=== PATIENT | female | born 1965 | race Two or more races ===

== ENCOUNTER 2022-01-29 15:55 | Inpatient (IN) | payer OTHER, SELFPAY ==
[2022-01-29 16:07] VITALS: BP 141/83; BP 142/72; PULSE 18; PULSE 76; RESP 18; TEMP 36.7; O2SAT 98; BMI 23.8
--- NOTE | 2022-01-29 16:28 | ED.GENADULT ---
HPI - General Adult General Chief complaint: Psychiatric Symptoms Stated complaint: [id number] Time Seen by Provider: 01/29/22 16:28 Source: patient and EMS Mode of arrival: EMS Limitations: no limitations History of Present Illness HPI narrative: Patient is a 56 year old assigned female at with a history of bipolar disorder presenting to the emergency department today with suicidal ideation and increased depression. Patient states that she can't sleep and feels blank . Patient denies any dizziness, lightheadedness, abdominal pain, nausea, vomiting, fever, chills, blurry vision, double vision, loss of vision, chest pain, difficulty breathing, shortness of breath, back pain, night sweats, pain with urination, increased urinary frequency, increased urinary urgency, blood in her urine or stool, syncope or a near syncopal episode, recent trauma or falls, bowel incontinence, bladder incontinence, bowel retention, bladder retention, or any other complaints at this time. Onset (ago): day(s) Severity: moderate Severity scale (1-10): 5 Relieving factors: none Exacerbating factors: none Associated symptoms: denies other symptoms Treatments prior to arrival: none Related Data Allergies Allergy/AdvReac Type Severity Reaction Status Date / Time No Known Allergies Allergy Verified 01/29/22 16:07 Review of Systems Constitutional: Constitutional: Reports no additional constitutional complaints, Denies chills, Denies fever(s) and Denies night sweats Eyes: Eyes: Reports no additional eye complaints, Denies blurry vision, Denies change in vision, Denies diplopia, Denies eye discharge, Denies loss of vision and Denies eye pain ENT: Denies dizziness Cardiovascular: Cardiovascular: Reports no additional cardiovascular complaints, Denies chest pain, Denies lightheadedness, Denies Loss of Consciousness and Denies dyspnea Respiratory: Respiratory: Reports no additional respiratory complaints and Denies dyspnea Gastrointestinal: Gastrointestinal: Reports no additional gastrointestinal complaints, Denies abdominal pain, Denies melena, Denies hematochezia, Denies change in bowel habits and Denies change in stool character Genitourinary: Genitourinary: Denies hematuria, Denies urinary frequency, Denies dysuria, Denies urinary incontinence, Denies urinary hesitancy and Denies urinary urgency Musculoskeletal: Musculoskeletal: Reports no additional musculoskeletal complaints, Denies numbness and Denies tingling Neurologic: Denies dizziness, Denies loss of vision, Denies numbness and Denies tingling Psychiatric: Psychiatric: Reports no additional psychiatric complaints, Reports depression and Reports suicidal ideation Endocrine: Endocrine: Reports no additional endocrine complaints Hematologic/Lymphatic: Hematologic/Lymphatic: Reports no additional hematologic/lymphatic complaints Allergic/Immunologic: Allergic/Immunologic: Reports no additional allergic/immunologic complaints PMFSH Past Medical History Attestation statement: The following information was validated with the patient. Source: old records reviewed Social History Social History Alcohol intake: never Smoked in Last 30 Days: No Use of substances other than those prescribed or required for medical reasons: Yes Substance Use Type: Marijuana Physical Exam ED Vital Signs: Vital Signs - 24 hr 01/29/22 16:07 Temperature 98.1 F Pulse Rate 76 Respiratory Rate 18 Blood Pressure 141/83 H Pulse Oximetry 98 Oxygen Delivery Method Room Air BMI result Body Mass Index 23.8 Const General: cooperative, no acute distress, alert and awake Nutritional Appearance: well nourished Orientation/consciousness: patient oriented x3 Limitations: no limitations HENMT Head: Yes normal to inspection and Yes atraumatic Ears: hearing grossly normal bilaterally and external ears normal General nose exam: Normal external nose present, no nasal discharge noted and no epistaxis Face and sinus: Yes normal facial exam, No abrasion and No laceration Mouth: Normal oral and palatal mucosa present, no drooling and no muffled voice Eyes General: appearance normal, both eyes and all related structures Periorbital: periorbital findings normal Eyelids: Yes eyelids normal Conjunctivae: conjunctivae normal Pupils: Equal, round and reactive pupils present EOM: EOMs intact bilaterally Neck Neck: Yes normal visual inspection, Yes full ROM and Yes no lymphadenopathy Chest Chest palpation & inspection: normal inspection of the chest Resp Effort & Inspection: normal respiratory effort and able to speak in complete sentences Auscultation: clear to auscultation bilaterally Cardio Rate: regular rate Rhythm: regular rhythm GI Inspection: Yes normal to inspection Neuro General: patient oriented x3 and moves all extremities Cranial nerves: Yes Equal, round and reactive pupils present Cognition (Neuro): normal cognition Motor exam (neuro): 5/5 motor strength present throughout Sensory Exam: Normal double simultaneous stimulation for sensation Coordination: [id number] test normal Extrem General: Yes normal to inspection, Yes full ROM and Yes capillary refill normal Psych Appearance: grossly normal Mental Status: mental status grossly normal Affect: normal affect Attitude: cooperative Thought process: Normal thought process present Thought content: Normal thought content present Insight: Good insight present (Psych) Medications Administered Discontinued Medications Generic Name Dose Route Start Last Admin Trade Name Yolanda PRN Reason Stop Dose Admin Lorazepam 2 mg 01/29/22 16:28 01/29/22 16:31 Lorazepam 1 Mg Tablet PO 01/29/22 16:29 2 mg ONCE ONE Administration Medical Decision Making MDM Narrative Medical decision making narrative: Patient is a 56 year old assigned female at with a history of bipolar disorder presenting to the emergency department today with suicidal ideation. Patient's physical exam was unremarkable. Patient's blood work was unremarkable. Patient's urine showed no acute process. Patient is on a section 12 from [facility] in the community. I explained my physical exam findings as well as all test results to the patient. I answered all questions asked by the patient. Patient is pending additional crisis evaluation. Medical Records Medical records reviewed: Yes I reviewed the patient's medical records. Lab Data Lab results reviewed: Yes I reviewed the patient's lab results. Result diagrams: 01/29/22 16:45 01/29/22 16:45 Labs: Lab Results 01/29/22 01/29/22 01/29/22 Range/Units 16:39 16:39 16:39 WBC (4.8-10.8) X10*3/uL RBC (4.20-5.50) X10*6/uL Hgb (12.0-16.0) g/dl Hct (37.0-47.0) % MCV (80.0-98.0) fL MCH (27.0-33.0) pg MCHC (31.0-35.0) g/dl RDW (11.0-16.0) % Plt Count (160-400) X10*3/uL MPV (9.4-12.3) fL Immature Gran % (Auto) (0.0-0.4) % Neut % (Auto) (45-73) % Lymph % (Auto) (20-40) % [place] % (Auto) (2-11) % Eos % (Auto) (0-4) % Baso % (Auto) (0-2) % Lymph # (Auto) (1.2-4.9) X10*3/uL [place] # (Auto) (0.1-1.2) X10*3/uL Eos # (Auto) (0.0-0.4) X10*3/uL Baso # (Auto) (0.0-0.2) X10*3/uL Abs Immat Gran (auto) (0.00-0.03) X10*3/uL Absolute Neuts (auto) (2.0-8.3) x10*3/uL Absolute Nucleated RBC (0.0-0.012) X10*3/uL Nucleated RBC % (auto) (0.0-0.2) /100WBC Sodium (135-145) mmol/L Potassium (3.3-5.1) mmol/L Chloride (96-108) mmol/L Carbon Dioxide (22-29) mmol/L Anion Gap (12-20) BUN (9-16) mg/dL Creatinine (0.5-1.4) mg/dL Estim Creat Clear Calc Estimated GFR Random Glucose (60-115) mg/dL Calcium (8.4-10.2) mg/dL Total Bilirubin (0.0-1.0) mg/dL AST (5-31) U/L ALT (0-31) U/L Alkaline Phosphatase (39-117) U/L Total Protein (6.5-8.0) g/dL Albumin (3.5-5.0) g/dL Urine Test NEGATIVE (NEGATIVE) Salicylates (15-30) mg/dL Urine Opiates Screen Not Detected (Not Detect) Urine Fentanyl Screen Not Detected (Not Detect) Ur Barbiturates Screen Not Detected (Not Detect) Ur Phencyclidine Scrn Not Detected (Not Detect) Ur Amphetamines Screen Not Detected (Not Detect) U Benzodiazepines Scrn Not Detected (Not Detect) Urine Cocaine Screen Not Detected (Not Detect) U Marijuana (THC) Screen POSITIVE H (Not Detect) Ethyl Alcohol mg/dL COVID-19 (GISEL) Negative (Negative) COVID-19 Clin Com See Note 01/29/22 01/29/22 Range/Units 16:45 16:45 WBC 9.2 (4.8-10.8) X10*3/uL RBC 4.28 (4.20-5.50) X10*6/uL Hgb 13.5 (12.0-16.0) g/dl Hct 38.4 (37.0-47.0) % MCV 89.7 (80.0-98.0) fL MCH 31.5 (27.0-33.0) pg MCHC 35.2 H (31.0-35.0) g/dl RDW 12.2 (11.0-16.0) % Plt Count 260 (160-400) X10*3/uL MPV 8.7 L (9.4-12.3) fL Immature Gran % (Auto) 0.3 (0.0-0.4) % Neut % (Auto) 69.7 (45-73) % Lymph % (Auto) 23.0 (20-40) % [place] % (Auto) 6.0 (2-11) % Eos % (Auto) 0.9 (0-4) % Baso % (Auto) 0.1 (0-2) % Lymph # (Auto) 2.1 (1.2-4.9) X10*3/uL [place] # (Auto) 0.6 (0.1-1.2) X10*3/uL Eos # (Auto) 0.1 (0.0-0.4) X10*3/uL Baso # (Auto) 0.0 (0.0-0.2) X10*3/uL Abs Immat Gran (auto) 0.03 (0.00-0.03) X10*3/uL Absolute Neuts (auto) 6.4 (2.0-8.3) x10*3/uL Absolute Nucleated RBC 0.000 (0.0-0.012) X10*3/uL Nucleated RBC % (auto) 0.0 (0.0-0.2) /100WBC Sodium 143 (135-145) mmol/L Potassium 3.9 (3.3-5.1) mmol/L Chloride 109 H (96-108) mmol/L Carbon Dioxide 26 (22-29) mmol/L Anion Gap 12 (12-20) BUN 10 (9-16) mg/dL Creatinine 0.75 (0.5-1.4) mg/dL Estim Creat Clear Calc 72.3 Estimated GFR > 60 Random Glucose 102 (60-115) mg/dL Calcium 9.5 (8.4-10.2) mg/dL Total Bilirubin 0.5 (0.0-1.0) mg/dL AST 16 (5-31) U/L ALT 18 (0-31) U/L Alkaline Phosphatase 93 (39-117) U/L Total Protein 6.9 (6.5-8.0) g/dL Albumin 4.2 (3.5-5.0) g/dL Urine Test (NEGATIVE) Salicylates < 5.0 L (15-30) mg/dL Urine Opiates Screen (Not Detect) Urine Fentanyl Screen (Not Detect) Ur Barbiturates Screen (Not Detect) Ur Phencyclidine Scrn (Not Detect) Ur Amphetamines Screen (Not Detect) U Benzodiazepines Scrn (Not Detect) Urine Cocaine Screen (Not Detect) U Marijuana (THC) Screen (Not Detect) Ethyl Alcohol < 10 mg/dL COVID-19 (GISEL) (Negative) COVID-19 Clin Com Discharge Plan Discharge Clinical Impression: Depression Patient Disposition: Still a Patient Print Language: Jamaican
[2022-01-29] MEDS: LORazepam 1 MG TABLET 2 MG PO (16:31)
--- NOTE | 2022-01-29 16:33 | PC.NURSE ---
patient medicated per order
[2022-01-29 16:51] LABS: MANUAL DIFF FLAG NO
[2022-01-29 16:53] LABS: Basophils Percent Auto 0.1 % (0-2); Eosinophils Absolute Auto 0.1 X10*3/uL (0.0-0.4); Eosinophils Percent Auto 0.9 % (0-4); Hematocrit 38.4 % (37.0-47.0); Hemoglobin 13.5 g/dl (12.0-16.0); Imm Gran Abs Auto 0.03 X10*3/uL (0.00-0.03); Imm Gran Pct Auto 0.3 % (0.0-0.4); Lymphocytes Absolute Auto 2.1 X10*3/uL (1.2-4.9); Mean Corpuscular HGB Conc 35.2 g/dl (31.0-35.0); Mean Corpuscular Hemoglobin 31.5 pg (27.0-33.0); Mean Corpuscular Volume 89.7 fL (80.0-98.0); Mean Platelet Volume 8.7 fL (9.4-12.3); Monocytes Absolute Auto 0.6 X10*3/uL (0.1-1.2); Neutrophils Absolute Auto 6.4 x10*3/uL (2.0-8.3); Neutrophils Percent Auto 69.7 % (45-73); Platelet Count 260 X10*3/uL (160-400); Red Blood Count 4.28 X10*6/uL (4.20-5.50); Red Cell Distribution Width 12.2 % (11.0-16.0); White Blood Count 9.2 X10*3/uL (4.8-10.8)
[2022-01-29 16:55] LABS: UPreg QC Valid YES; Urine Pregnancy NEGATIVE (NEGATIVE)
[2022-01-29 17:04] LABS: COVID-19 Test Negative (Negative); IDNOW Serial# 16C4AD1C
[2022-01-29 17:06] LABS: Amphetamine Screen Urine Not Detected (Not Detect); Barbiturates, Urine Not Detected (Not Detect); Benzodiazepines Screen Urine Not Detected (Not Detect); Cannabinoid Screen Urine POSITIVE (Not Detect); Cocaine Screen Urine Not Detected (Not Detect); Fentanyl, urine Not Detected (Not Detect); Opiate Screen Urine Not Detected (Not Detect); Phencyclidine Screen Urine Not Detected (Not Detect)
[2022-01-29 17:18] LABS: Alanine Aminotransferase 18 U/L (0-31); Albumin Level 4.2 g/dL (3.5-5.0); Alkaline Phosphatase 93 U/L (39-117); Anion Gap 12 (12-20); Aspartate Amino Transferase 16 U/L (5-31); Bilirubin Total 0.5 mg/dL (0.0-1.0); Blood Urea Nitrogen 10 mg/dL (9-16); Calcium 9.5 mg/dL (8.4-10.2); Carbon Dioxide 26 mmol/L (22-29); Chloride 109 mmol/L (96-108); Creatinine Clr Calc Pharmacy 72.3; Estimated Glomerular Filt Rate > 60; Ethanol < 10 mg/dL; Glucose Random 102 mg/dL (60-115); Potassium 3.9 mmol/L (3.3-5.1); Salicylate < 5.0 mg/dL (15-30); Sodium 143 mmol/L (135-145); Total Protein 6.9 g/dL (6.5-8.0)
[2022-01-29 17:43] LABS: Acetaminophen LAB < 1 mcg/mL (<30)
[2022-01-29] MEDS: diphenhydrAMINE HCL 25 MG CAPSULE 50 MG PO (17:47)
--- NOTE | 2022-01-29 17:48 | PC.NURSE ---
patient spoke with provider and requested something to help her sleep as she hasnt slept in a few days, pt was medicated per order, will continue to monitor.
--- NOTE | 2022-01-29 19:26 | PC.NURSE ---
report received from CHRISSY Estes pt is alert and oriented sitting in the hallway no signs of acute distress notice breathing equally unlabored
[2022-01-29] MEDS: QUEtiapine Fumarate 25 MG TABLET PO (20:18)
[2022-01-29] MEDS: QUEtiapine Fumarate 50 MG TABLET PO (20:18)
[2022-01-29 23:01] VITALS: BP 112/75; PULSE 93; O2SAT 98
[2022-01-29] MEDS: hydrOXYzine HCL 25 MG TABLET PO (23:31)
[2022-01-29] MEDS: traZODone HCL 50 MG TABLET PO (23:31)
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
[2022-01-30] MEDS: traZODone HCL 50 MG TABLET PO ×2 (02:56→22:26)
[2022-01-30] MEDS: hydrOXYzine HCL 25 MG TABLET PO (06:48)
[2022-01-30 08:15] VITALS: BP 102/78; PULSE 64; TEMP 35.9; O2SAT 98
[2022-01-30] MEDS: buPROPion HCl XL 150 MG TAB.ER.24H PO (08:21)
--- NOTE | 2022-01-30 09:00 | ECG_ITS ---
Test Reason : qtc check Blood Pressure : / mmHG Vent. Rate : 069 BPM Atrial Rate : 069 BPM P-R Int : 120 ms QRS Dur : 072 ms QT Int : 374 ms P-R-T Axes : 043 009 033 degrees QTc Int : 400 ms Normal sinus rhythm Low voltage QRS RSR' or QR pattern in V1 suggests right ventricular conduction delay Nonspecific T wave abnormality Anteroseptal leads Abnormal ECG No previous ECGs available Referred By: Mary Coley Electronically Signed By:MAYCO MANCIA MD
[2022-01-30 09:46] LABS: Estimated Average Glucose 94 mg/dL; Hemoglobin A1c % 4.9 %
[2022-01-30 10:09] LABS: Cholesterol 215 mg/dL; HDL Cholesterol 50 mg/dL; LDL Cholesterol Calculated 149 mg/dl; Magnesium 2.1 mg/dL (1.6-2.6); Triglycerides 83 mg/dL
[2022-01-30] MEDS: Levothyroxine Sodium 100 MCG TABLET PO (10:14)
[2022-01-30 10:20] LABS: Free T4 (Free Thyroxine) 0.95 ng/dL (0.71-1.85); Thyroid Stimulating Hormone 5.38 uIU/mL (0.32-4.0)
[2022-01-30 10:32] LABS: Folate 11.3 ng/mL (> or = 4.0); Vitamin B12 507 pg/mL (200-900)
[2022-01-30] MEDS: LORazepam 1 MG TABLET PO (13:45)
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
[2022-01-30 18:00] VITALS: BP 90/61; PULSE 83; RESP 18; TEMP 35.8; O2SAT 98
[2022-01-30] MEDS: QUEtiapine Fumarate 50 MG TABLET PO (20:16)
[2022-01-30] MEDS: OLANZapine 2.5 MG TABLET PO (20:17)
[2022-01-30] MEDS: QUEtiapine Fumarate 25 MG TABLET PO (20:17)
[2022-01-30] MEDS: LORazepam 0.5 MG TABLET PO (20:17)
[2022-01-31 07:00] VITALS: BMI 24.4
[2022-01-31 08:00] VITALS: BP 109/62; PULSE 75; TEMP 36.3
[2022-01-31] MEDS: Levothyroxine Sodium 100 MCG TABLET PO (08:26)
[2022-01-31] MEDS: OLANZapine 2.5 MG TABLET PO (08:26)
[2022-01-31] MEDS: buPROPion HCl XL 150 MG TAB.ER.24H PO (08:26)
[2022-01-31] MEDS: hydrOXYzine HCL 25 MG TABLET PO (13:21)
[2022-01-31] MEDS: LORazepam 0.5 MG TABLET PO (16:46)
--- NOTE | 2022-01-31 16:54 | HO.PSYCHPN ---
Subjective Subjective Date of Service: 01/31/22 Reason For Visit: bipolar disorder, depressed Subjective Notes: Conditional Voluntary Healthcare Proxy: No Guardianship: No Medical Problems Affecting Mental Status: No Interim History: Anxious, apprehensive, but calmer than when first admitted. Responds to reassurance Full med review with rationale for dosing-some paranoia around meds. Education attempted. Medication Compliance: Yes Side effects from medications: No Attending Groups: Intermittent Review of Systems Acute medical concerns: No Medical Review of Systems: unchanged Mental Status Exam Mental Status Exam Patient Appearance: Fatigued Patient Orientation: Person, Place, Time and Situation Level of Consciousness: Restless and Alert Patient Behavior: Talkative, Restless, Anxious, Fearful, Distractible, Isolative and Good Eye Contact Mood Description: Depressed, Anxious and Apprehensive Affect Description: Apprehensive Patient Cognition Impaired: No Ability to Follow Directions: Good Speech Pattern: Spontaneous Speech Memory Description: Intact Hallucinations: Auditory Delusions: Paranoid Ideation Perceptual Disturbances: Depersonalization and Derealization Thought Process: Racing, Distracted and Rumination Thought Content: positive for Circumstantial, positive for Perseveration, positive for Preoccupation and positive for Suicidal Ideation Depressive Symptoms: Insomnia, Diff. Making Decisions, Increased Irritability, Difficulty Sleeping, Changes in Appetite, Loss of Int. in Activity, Hopelessness, Feelings of Guilt, Unhappiness, Increased Fatigue, Low Self Esteem, Loss of Energy and Difficulty Concentrating Abnormal Motor Activity Signs and Symptoms: Restlessness Judgement: Fair Diagnostics Vital Signs (24Hr): Vital Signs - 24 hr 01/30/22 18:00 01/31/22 08:00 Temperature 96.5 F L 97.4 F Pulse Rate 83 75 Respiratory Rate 18 Blood Pressure 90/61 109/62 Pulse Oximetry 98 Oxygen Delivery Method Room Air BMI result Body Mass Index 24.4 Labs Results: 01/29/22 16:45 01/29/22 16:45 Labs: Laboratory Results - last 48 hr 01/29/22 01/29/22 01/29/22 16:39 16:39 16:39 Sodium Potassium Chloride Carbon Dioxide Anion Gap BUN Creatinine Estim Creat Clear Calc Estimated GFR Random Glucose Estimat Average Glucose Hemoglobin A1c % Calcium Magnesium Total Bilirubin AST ALT Alkaline Phosphatase Total Protein Albumin Triglycerides Cholesterol LDL Cholesterol, Calc HDL Cholesterol Vitamin B12 Folate TSH Free T4 Urine Test NEGATIVE Salicylates Urine Opiates Screen Not Detected Urine Fentanyl Screen Not Detected Acetaminophen Ur Barbiturates Screen Not Detected Ur Phencyclidine Scrn Not Detected Ur Amphetamines Screen Not Detected U Benzodiazepines Scrn Not Detected Urine Cocaine Screen Not Detected U Marijuana (THC) Screen POSITIVE H Ethyl Alcohol COVID-19 ([facility]) Negative COVID-19 [employer] See Note 01/29/22 01/30/22 01/30/22 16:45 08:31 08:31 Sodium 143 Potassium 3.9 Chloride 109 H Carbon Dioxide 26 Anion Gap 12 BUN 10 Creatinine 0.75 Estim Creat Clear Calc 72.3 Estimated GFR > 60 Random Glucose 102 Estimat Average Glucose 94 Hemoglobin A1c % 4.9 Calcium 9.5 Magnesium 2.1 Total Bilirubin 0.5 AST 16 ALT 18 Alkaline Phosphatase 93 Total Protein 6.9 Albumin 4.2 Triglycerides 83 Cholesterol 215 LDL Cholesterol, Calc 149 HDL Cholesterol 50 Vitamin B12 Folate TSH 5.38 H Free T4 0.95 Urine Test Salicylates < 5.0 L Urine Opiates Screen Urine Fentanyl Screen Acetaminophen < 1 Ur Barbiturates Screen Ur Phencyclidine Scrn Ur Amphetamines Screen U Benzodiazepines Scrn Urine Cocaine Screen U Marijuana (THC) Screen Ethyl Alcohol < 10 COVID-19 ([facility]) [employer] 01/30/22 08:31 Sodium Potassium Chloride Carbon Dioxide Anion Gap BUN Creatinine Estim Creat Clear Calc Estimated GFR Random Glucose Estimat Average Glucose Hemoglobin A1c % Calcium Magnesium Total Bilirubin AST ALT Alkaline Phosphatase Total Protein Albumin Triglycerides Cholesterol LDL Cholesterol, Calc HDL Cholesterol Vitamin B12 507 Folate 11.3 TSH Free T4 Urine Test Salicylates Urine Opiates Screen Urine Fentanyl Screen Acetaminophen Ur Barbiturates Screen Ur Phencyclidine Scrn Ur Amphetamines Screen U Benzodiazepines Scrn Urine Cocaine Screen U Marijuana (THC) Screen Ethyl Alcohol COVID-19 ([facility]) COVID-19 [employer] Medications Medications Current Medications Acetaminophen (Acetaminophen 325 Mg Tablet) 650 mg PO Q6H PRN PRN Reason: Headache/Pain Mild Scale (1-3) Al Hydroxide/Mg Hydroxide (Magnesium Hydrox/Alum Hydrox 30 Ml Oral.Susp) 30 ml PO Q6H PRN PRN Reason: Heartburn/Nausea Bupropion HCl (Bupropion Hcl Xl 150 Mg Tab.Er.24h) 150 mg PO DAILY [facility] Last Admin: 01/31/22 08:26 Dose: 150 mg Gabapentin (Gabapentin 100 Mg Capsule) 100 mg PO TID [facility] Hydroxyzine HCl (Hydroxyzine Hcl 25 Mg Tablet) 25 mg PO Q6H PRN PRN Reason: Anxiety Last Admin: 01/31/22 13:21 Dose: 25 mg Levothyroxine Sodium (Levothyroxine Sodium 100 Mcg Tablet) 100 mcg PO DAILY [facility] Last Admin: 01/31/22 08:26 Dose: 100 mcg Lorazepam (Lorazepam 0.5 Mg Tablet) 0.5 mg PO Q8H PRN PRN Reason: Anxiety Last Admin: 01/31/22 16:46 Dose: 0.5 mg Magnesium Hydroxide (Milk Of Magnesia 30 Ml Oral.Susp) 30 ml PO DAILY PRN PRN Reason: Constipation Olanzapine (Olanzapine 5 Mg Tablet) 5 mg PO BID [facility] Quetiapine Fumarate (Quetiapine Fumarate 25 Mg Tablet) 25 mg PO BEDTIME [facility] Last Admin: 01/30/22 20:17 Dose: 25 mg Quetiapine Fumarate (Quetiapine Fumarate 50 Mg Tablet) 50 mg PO BEDTIME [facility] Last Admin: 01/30/22 20:16 Dose: 50 mg Trazodone HCl (Trazodone Hcl 50 Mg Tablet) 50 mg PO BEDTIME PRN PRN Reason: Insomnia Last Admin: 01/30/22 22:26 Dose: 50 mg Allergies Allergies Allergy/AdvReac Type Severity Reaction Status Date / Time No Known Allergies Allergy Verified 01/29/22 16:07 Assessment & Plan Assessment & Plan (1) Mood disorder: Status: Acute Code(s): F39 - Unspecified mood [affective] disorder Assessment and Plan: 01/31/22: Gabapentin 100 mg tid Increase Olanzapine to 5 mg bid (2) Anxiety: Status: Acute Code(s): F41.9 - Anxiety disorder, unspecified I spent minutes with the patient and/or on the patient floor today, greater than?50% of which was spent counseling/coordinating care. Patient educated on: medication risk/benefits Informed Consent: further education needed Reason for contiued inpatient stay Substantial Risk for: inability to function and rapid decompensation
[2022-01-31 17:11] VITALS: BP 97/53; PULSE 83; RESP 16; TEMP 36.6; O2SAT 97
[2022-01-31] MEDS: QUEtiapine Fumarate 50 MG TABLET PO (20:17)
[2022-01-31] MEDS: Gabapentin 100 MG CAPSULE PO (20:17)
[2022-01-31] MEDS: QUEtiapine Fumarate 25 MG TABLET PO (20:18)
[2022-01-31] MEDS: OLANZapine 5 MG TABLET PO (20:19)
[2022-01-31] MEDS: traZODone HCL 50 MG TABLET PO (21:30)
[2022-02-01 08:00] VITALS: BP 117/76; PULSE 75; TEMP 36.1
[2022-02-01] MEDS: Gabapentin 100 MG CAPSULE PO ×3 (08:31→20:15)
[2022-02-01] MEDS: Levothyroxine Sodium 100 MCG TABLET PO (08:31)
[2022-02-01] MEDS: buPROPion HCl XL 150 MG TAB.ER.24H PO (08:31)
[2022-02-01] MEDS: OLANZapine 5 MG TABLET PO ×2 (08:31→20:15)
--- NOTE | 2022-02-01 16:00 | P.PNPSI_ITS ---
Subjective Subjective Date of Service: 02/01/22 Reason For Visit: bipolar disorder, depressed Subjective Notes: Conditional Voluntary Healthcare Proxy: No Guardianship: No Medical Problems Affecting Mental Status: No Interim History: Less apprehensive and anxious with periods of some intensity. Reports regime is tolerated thus far but with continues suspicion of meds, doses, rationale for use. Medication Compliance: Yes Side effects from medications: No Attending Groups: Intermittent Review of Systems Acute medical concerns: No Medical Review of Systems: unchanged Mental Status Exam Mental Status Exam Patient Appearance: Fatigued Patient Orientation: Person, Place, Time and Situation Level of Consciousness: Restless and Alert Patient Behavior: Talkative, Restless, Anxious, Fearful, Distractible, Isolative and Good Eye Contact Mood Description: Depressed, Anxious and Apprehensive Affect Description: Apprehensive Patient Cognition Impaired: No Ability to Follow Directions: Good Speech Pattern: Spontaneous Speech Memory Description: Intact Hallucinations: Auditory Delusions: Paranoid Ideation Perceptual Disturbances: Depersonalization and Derealization Thought Process: Racing, Distracted and Rumination Thought Content: positive for Circumstantial, positive for Perseveration, positive for Preoccupation and positive for Suicidal Ideation Depressive Symptoms: Insomnia, Diff. Making Decisions, Increased Irritability, Difficulty Sleeping, Changes in Appetite, Loss of Int. in Activity, Hopelessness, Feelings of Guilt, Unhappiness, Increased Fatigue, Low Self Esteem, Loss of Energy and Difficulty Concentrating Abnormal Motor Activity Signs and Symptoms: Restlessness Judgement: Fair Diagnostics Vital Signs (24Hr): Vital Signs - 24 hr 01/31/22 17:11 02/01/22 08:00 Temperature 97.8 F 97 F Pulse Rate 83 75 Respiratory Rate 16 Blood Pressure 97/53 L 117/76 Pulse Oximetry 97 Oxygen Delivery Method Room Air BMI result Body Mass Index 24.4 Labs Results: 01/29/22 16:45 01/29/22 16:45 Medications Medications Current Medications Acetaminophen (Acetaminophen 325 Mg Tablet) 650 mg PO Q6H PRN PRN Reason: Headache/Pain Mild Scale (1-3) Al Hydroxide/Mg Hydroxide (Magnesium Hydrox/Alum Hydrox 30 Ml Oral.Susp) 30 ml PO Q6H PRN PRN Reason: Heartburn/Nausea Bupropion HCl (Bupropion Hcl Xl 150 Mg Tab.Er.24h) 150 mg PO DAILY [facility] Last Admin: 02/01/22 08:31 Dose: 150 mg Gabapentin (Gabapentin 100 Mg Capsule) 100 mg PO TID [facility] Last Admin: 02/01/22 14:31 Dose: 100 mg Hydroxyzine HCl (Hydroxyzine Hcl 25 Mg Tablet) 25 mg PO Q6H PRN PRN Reason: Anxiety Last Admin: 01/31/22 13:21 Dose: 25 mg Levothyroxine Sodium (Levothyroxine Sodium 100 Mcg Tablet) 100 mcg PO DAILY [facility] Last Admin: 02/01/22 08:31 Dose: 100 mcg Lorazepam (Lorazepam 0.5 Mg Tablet) 0.5 mg PO Q8H PRN PRN Reason: Anxiety Last Admin: 01/31/22 16:46 Dose: 0.5 mg Magnesium Hydroxide (Milk Of Magnesia 30 Ml Oral.Susp) 30 ml PO DAILY PRN PRN Reason: Constipation Olanzapine (Olanzapine 5 Mg Tablet) 5 mg PO BID [facility] Last Admin: 02/01/22 08:31 Dose: 5 mg Quetiapine Fumarate (Quetiapine Fumarate 25 Mg Tablet) 25 mg PO BEDTIME [facility] Last Admin: 01/31/22 20:18 Dose: 25 mg Quetiapine Fumarate (Quetiapine Fumarate 50 Mg Tablet) 50 mg PO BEDTIME [facility] Last Admin: 01/31/22 20:17 Dose: 50 mg Trazodone HCl (Trazodone Hcl 50 Mg Tablet) 50 mg PO BEDTIME PRN PRN Reason: Insomnia Last Admin: 01/31/22 21:30 Dose: 50 mg Allergies Allergies Allergy/AdvReac Type Severity Reaction Status Date / Time No Known Allergies Allergy Verified 01/29/22 16:07 Assessment & Plan Assessment & Plan (1) Anxiety: Status: Acute Code(s): F41.9 - Anxiety disorder, unspecified (2) Mood disorder: Status: Acute Code(s): F39 - Unspecified mood [affective] disorder Plan 56 yo female, symptoms of depression, SI, insomnia, poor appetite, agitation, paranoia, delusions. Plan: Olanzapine 2. 5mg bid Continue Seroquel Pt has not been taking Wellbutrin, asks to keep it Lorazepam prn Collateral contact Observe, monitor 02/01/22: No changes today. I spent minutes with the patient and/or on the patient floor today, greater than?50% of which was spent counseling/coordinating care. Patient educated on: therapeutic strategies Informed Consent: further education needed Reason for contiued inpatient stay Substantial Risk for: inability to function and rapid decompensation
[2022-02-01 17:16] VITALS: BP 113/70; PULSE 80; TEMP 36.3; O2SAT 99
[2022-02-01] MEDS: QUEtiapine Fumarate 25 MG TABLET PO (20:15)
[2022-02-01] MEDS: LORazepam 0.5 MG TABLET PO (20:15)
[2022-02-01] MEDS: QUEtiapine Fumarate 50 MG TABLET PO (20:15)
[2022-02-02 08:00] VITALS: BP 118/76; PULSE 78; TEMP 36
[2022-02-02] MEDS: Gabapentin 100 MG CAPSULE PO ×3 (08:37→20:08)
[2022-02-02] MEDS: buPROPion HCl XL 150 MG TAB.ER.24H PO (08:37)
[2022-02-02] MEDS: OLANZapine 5 MG TABLET PO ×2 (08:37→20:08)
[2022-02-02] MEDS: Levothyroxine Sodium 100 MCG TABLET PO (08:37)
--- NOTE | 2022-02-02 13:43 | P.PNPSI_ITS ---
Subjective Subjective Date of Service: 02/02/22 Reason For Visit: bipolar disorder, depressed Interim History: Chart reviewed and discussed with nursing. Overall patient reports feeling that she is improving and would like to be discharged soon. Denies hallucinations. Reports feeling less scared or paranoid. Reports feeling safe on the unit. Reports that she worries about her son which is also part of the reason why she would like discharge. Denies overt depression. No SI. No medication concerns. Sleeping better. Medication Compliance: Yes Side effects from medications: No Attending Groups: Yes Review of Systems Acute medical concerns: No Review of Systems Review of Systems Unremarkable Mental Status Exam Mental Status Exam Narrative: Pleasant. Hospital clothing. Engaged. Some tearfulness when discussing wanting to be home otherwise denies overt depression. No SI. No HI. No agitation. Denies hallucinations or delusions. Insight and judgment fair Diagnostics Vital Signs (24Hr): Vital Signs - 24 hr 02/01/22 17:16 02/02/22 08:00 Temperature 97.4 F 96.8 F Pulse Rate 80 78 Blood Pressure 113/70 118/76 Pulse Oximetry 99 Oxygen Delivery Method Room Air BMI result Body Mass Index 24.4 Labs Results: 01/29/22 16:45 01/29/22 16:45 Medications Medications Current Medications Acetaminophen (Acetaminophen 325 Mg Tablet) 650 mg PO Q6H PRN PRN Reason: Headache/Pain Mild Scale (1-3) Al Hydroxide/Mg Hydroxide (Magnesium Hydrox/Alum Hydrox 30 Ml Oral.Susp) 30 ml PO Q6H PRN PRN Reason: Heartburn/Nausea Bupropion HCl (Bupropion Hcl Xl 150 Mg Tab.Er.24h) 150 mg PO DAILY [facility] Last Admin: 02/02/22 08:37 Dose: 150 mg Gabapentin (Gabapentin 100 Mg Capsule) 100 mg PO TID [facility] Last Admin: 02/02/22 08:37 Dose: 100 mg Hydroxyzine HCl (Hydroxyzine Hcl 25 Mg Tablet) 25 mg PO Q6H PRN PRN Reason: Anxiety Last Admin: 01/31/22 13:21 Dose: 25 mg Levothyroxine Sodium (Levothyroxine Sodium 100 Mcg Tablet) 100 mcg PO DAILY [facility] Last Admin: 02/02/22 08:37 Dose: 100 mcg Lorazepam (Lorazepam 0.5 Mg Tablet) 0.5 mg PO Q8H PRN PRN Reason: Anxiety Last Admin: 02/01/22 20:15 Dose: 0.5 mg Magnesium Hydroxide (Milk Of Magnesia 30 Ml Oral.Susp) 30 ml PO DAILY PRN PRN Reason: Constipation Olanzapine (Olanzapine 5 Mg Tablet) 5 mg PO BID [facility] Last Admin: 02/02/22 08:37 Dose: 5 mg Quetiapine Fumarate (Quetiapine Fumarate 25 Mg Tablet) 25 mg PO BEDTIME [facility] Last Admin: 02/01/22 20:15 Dose: 25 mg Quetiapine Fumarate (Quetiapine Fumarate 50 Mg Tablet) 50 mg PO BEDTIME [facility] Last Admin: 02/01/22 20:15 Dose: 50 mg Trazodone HCl (Trazodone Hcl 50 Mg Tablet) 50 mg PO BEDTIME PRN PRN Reason: Insomnia Last Admin: 01/31/22 21:30 Dose: 50 mg Allergies Allergies Allergy/AdvReac Type Severity Reaction Status Date / Time No Known Allergies Allergy Verified 01/29/22 16:07 Assessment & Plan Assessment & Plan (1) Anxiety: Status: Acute Code(s): F41.9 - Anxiety disorder, unspecified (2) Mood disorder: Status: Acute Code(s): F39 - Unspecified mood [affective] disorder Plan 56 yo female, symptoms of depression, SI, insomnia, poor appetite, agitation, paranoia, delusions. Plan: Olanzapine 2. 5mg bid Continue Seroquel Pt has not been taking Wellbutrin, asks to keep it Lorazepam prn Collateral contact Observe, monitor 02/01/22: No changes today. 02/02/2022: No changes to current plan I spent minutes with the patient and/or on the patient floor today, greater than?50% of which was spent counseling/coordinating care. Reason for contiued inpatient stay Substantial Risk for: rapid decompensation
[2022-02-02] MEDS: LORazepam 0.5 MG TABLET PO ×2 (14:12→21:52)
[2022-02-02 16:31] VITALS: BP 108/65; PULSE 78; RESP 18; TEMP 36.8; O2SAT 98
[2022-02-02] MEDS: QUEtiapine Fumarate 25 MG TABLET PO (20:08)
[2022-02-02] MEDS: QUEtiapine Fumarate 50 MG TABLET PO (20:08)
[2022-02-02] MEDS: traZODone HCL 50 MG TABLET PO (20:08)
[2022-02-03 08:00] VITALS: BP 116/73; TEMP 36.4
[2022-02-03] MEDS: Gabapentin 100 MG CAPSULE PO ×3 (09:14→20:12)
[2022-02-03] MEDS: buPROPion HCl XL 150 MG TAB.ER.24H PO (09:14)
[2022-02-03] MEDS: OLANZapine 5 MG TABLET PO ×2 (09:14→20:12)
[2022-02-03] MEDS: Levothyroxine Sodium 100 MCG TABLET PO (09:14)
--- NOTE | 2022-02-03 11:25 | P.PNPSI_ITS ---
Subjective Subjective Date of Service: 02/03/22 Reason For Visit: bipolar disorder, depressed Interim History: No significant changes from yesterday and continues to report feeling that she is improving and would like to be discharged soon. Denies hallucinations. No paranoia and feeling safe on the unit. Reports continues to worry about her son which is also part of the reason why she would like discharge. Denies overt depression. No SI. No medication concerns. Sleeping better. Review of Systems Review of Systems Unremarkable Mental Status Exam Mental Status Exam Narrative: Pleasant. Hospital clothing. Engaged. Some tearfulness when discussing wanting to be home otherwise no overt depression. No SI. No HI. No agitation. Denies hallucinations or delusions. Insight and judgment fair Diagnostics Vital Signs (24Hr): Vital Signs - 24 hr 02/02/22 16:31 Temperature 98.3 F Pulse Rate 78 Respiratory Rate 18 Blood Pressure 108/65 Pulse Oximetry 98 Oxygen Delivery Method Room Air BMI result Body Mass Index 24.4 Labs Results: 01/29/22 16:45 01/29/22 16:45 Medications Medications Current Medications Acetaminophen (Acetaminophen 325 Mg Tablet) 650 mg PO Q6H PRN PRN Reason: Headache/Pain Mild Scale (1-3) Al Hydroxide/Mg Hydroxide (Magnesium Hydrox/Alum Hydrox 30 Ml Oral.Susp) 30 ml PO Q6H PRN PRN Reason: Heartburn/Nausea Bupropion HCl (Bupropion Hcl Xl 150 Mg Tab.Er.24h) 150 mg PO DAILY [facility] Last Admin: 02/03/22 09:14 Dose: 150 mg Gabapentin (Gabapentin 100 Mg Capsule) 100 mg PO TID [facility] Last Admin: 02/03/22 09:14 Dose: 100 mg Hydroxyzine HCl (Hydroxyzine Hcl 25 Mg Tablet) 25 mg PO Q6H PRN PRN Reason: Anxiety Last Admin: 01/31/22 13:21 Dose: 25 mg Levothyroxine Sodium (Levothyroxine Sodium 100 Mcg Tablet) 100 mcg PO DAILY [facility] Last Admin: 02/03/22 09:14 Dose: 100 mcg Lorazepam (Lorazepam 0.5 Mg Tablet) 0.5 mg PO Q8H PRN PRN Reason: Anxiety Last Admin: 02/02/22 21:52 Dose: 0.5 mg Magnesium Hydroxide (Milk Of Magnesia 30 Ml Oral.Susp) 30 ml PO DAILY PRN PRN Reason: Constipation Olanzapine (Olanzapine 5 Mg Tablet) 5 mg PO BID [facility] Last Admin: 02/03/22 09:14 Dose: 5 mg Quetiapine Fumarate (Quetiapine Fumarate 25 Mg Tablet) 25 mg PO BEDTIME [facility] Last Admin: 02/02/22 20:08 Dose: 25 mg Quetiapine Fumarate (Quetiapine Fumarate 50 Mg Tablet) 50 mg PO BEDTIME [facility] Last Admin: 02/02/22 20:08 Dose: 50 mg Trazodone HCl (Trazodone Hcl 50 Mg Tablet) 50 mg PO BEDTIME PRN PRN Reason: Insomnia Last Admin: 02/02/22 20:08 Dose: 50 mg Allergies Allergies Allergy/AdvReac Type Severity Reaction Status Date / Time No Known Allergies Allergy Verified 01/29/22 16:07 Assessment & Plan Assessment & Plan (1) Anxiety: Status: Acute Code(s): F41.9 - Anxiety disorder, unspecified (2) Mood disorder: Status: Acute Code(s): F39 - Unspecified mood [affective] disorder Plan 56 yo female, symptoms of depression, SI, insomnia, poor appetite, agitation, paranoia, delusions. Plan: Olanzapine 2. 5mg bid Continue Seroquel Pt has not been taking Wellbutrin, asks to keep it Lorazepam prn Collateral contact Observe, monitor 02/01/22: No changes today. 02/03/2022: No changes to current plan I spent minutes with the patient and/or on the patient floor today, greater than?50% of which was spent counseling/coordinating care. Reason for contiued inpatient stay Substantial Risk for: inability to function
[2022-02-03 18:00] VITALS: BP 109/60; PULSE 73; RESP 16; TEMP 36.1; O2SAT 99
[2022-02-03] MEDS: QUEtiapine Fumarate 50 MG TABLET PO (20:12)
[2022-02-03] MEDS: QUEtiapine Fumarate 25 MG TABLET PO (20:12)
[2022-02-03] MEDS: traZODone HCL 50 MG TABLET PO ×2 (20:12→22:06)
[2022-02-03] MEDS: LORazepam 0.5 MG TABLET PO (22:06)
[2022-02-04 08:00] VITALS: BP 112/76; PULSE 71; TEMP 36.1
[2022-02-04] MEDS: OLANZapine 5 MG TABLET PO ×2 (08:27→20:16)
[2022-02-04] MEDS: buPROPion HCl XL 150 MG TAB.ER.24H PO (08:27)
[2022-02-04] MEDS: Levothyroxine Sodium 100 MCG TABLET PO (08:27)
[2022-02-04] MEDS: Gabapentin 100 MG CAPSULE PO ×3 (08:27→20:14)
--- NOTE | 2022-02-04 16:50 | HO.PSYCHPN ---
Subjective Subjective Date of Service: 02/04/22 Reason For Visit: bipolar disorder, depressed Subjective Notes: Conditional Voluntary Healthcare Proxy: No Guardianship: No Medical Problems Affecting Mental Status: No Interim History: Discussed anxiety and feeling upset and feeling accused of using the hospital to get fuel assistance. Believes last evening team accused her of this. Review of medications. ?Wellbutrin escalating pt. Discussed a change to better address anxiety. Reports poor sleep last evening. Medication Compliance: Yes Side effects from medications: Yes (?agitation from Wellbutrin) Attending Groups: Intermittent Review of Systems Acute medical concerns: No Medical Review of Systems: unchanged Mental Status Exam Mental Status Exam Patient Appearance: Appropriate Patient Orientation: Person, Place, Time and Situation Level of Consciousness: Alert Patient Behavior: Talkative, Anxious, Distractible, Good Eye Contact and Crying Mood Description: Depressed, Anxious and Apprehensive Affect Description: Anxious and Apprehensive Patient Cognition Impaired: No Ability to Follow Directions: Good Speech Pattern: Spontaneous Speech Memory Description: Intact Hallucinations: None Delusions: Not Present Perceptual Disturbances: Depersonalization and Derealization Thought Process: Rumination Thought Content: positive for Perseveration and positive for Suicidal Ideation (denies) Depressive Symptoms: Increased Anxiety, Increased Irritability and Low Self Esteem Judgement: Good Diagnostics Vital Signs (24Hr): Vital Signs - 24 hr 02/03/22 18:00 02/04/22 08:00 Temperature 97 F 96.9 F Pulse Rate 73 71 Respiratory Rate 16 Blood Pressure 109/60 112/76 Pulse Oximetry 99 Oxygen Delivery Method Room Air BMI result Body Mass Index 24.4 Labs Results: 01/29/22 16:45 01/29/22 16:45 Medications Medications Current Medications Acetaminophen (Acetaminophen 325 Mg Tablet) 650 mg PO Q6H PRN PRN Reason: Headache/Pain Mild Scale (1-3) Al Hydroxide/Mg Hydroxide (Magnesium Hydrox/Alum Hydrox 30 Ml Oral.Susp) 30 ml PO Q6H PRN PRN Reason: Heartburn/Nausea Gabapentin (Gabapentin 100 Mg Capsule) 100 mg PO TID [facility] Last Admin: 02/04/22 16:30 Dose: 100 mg Hydroxyzine HCl (Hydroxyzine Hcl 25 Mg Tablet) 25 mg PO Q6H PRN PRN Reason: Anxiety Last Admin: 01/31/22 13:21 Dose: 25 mg Levothyroxine Sodium (Levothyroxine Sodium 100 Mcg Tablet) 100 mcg PO DAILY [facility] Last Admin: 02/04/22 08:27 Dose: 100 mcg Lorazepam (Lorazepam 0.5 Mg Tablet) 0.5 mg PO Q8H PRN PRN Reason: Anxiety Last Admin: 02/03/22 22:06 Dose: 0.5 mg Magnesium Hydroxide (Milk Of Magnesia 30 Ml Oral.Susp) 30 ml PO DAILY PRN PRN Reason: Constipation Mirtazapine (Mirtazapine 15 Mg Tablet) 15 mg PO BEDTIME [facility] Olanzapine (Olanzapine 5 Mg Tablet) 5 mg PO BID [facility] Last Admin: 02/04/22 08:27 Dose: 5 mg Quetiapine Fumarate (Quetiapine Fumarate 25 Mg Tablet) 25 mg PO BEDTIME [facility] Last Admin: 02/03/22 20:12 Dose: 25 mg Quetiapine Fumarate (Quetiapine Fumarate 50 Mg Tablet) 50 mg PO BEDTIME [facility] Last Admin: 02/03/22 20:12 Dose: 50 mg Trazodone HCl (Trazodone Hcl 50 Mg Tablet) 50 mg PO BEDTIME PRN PRN Reason: Insomnia Last Admin: 02/03/22 22:06 Dose: 50 mg Allergies Allergies Allergy/AdvReac Type Severity Reaction Status Date / Time No Known Allergies Allergy Verified 01/29/22 16:07 Assessment & Plan Assessment & Plan (1) Anxiety: Status: Acute Code(s): F41.9 - Anxiety disorder, unspecified (2) Mood disorder: Status: Acute Code(s): F39 - Unspecified mood [affective] disorder Plan 56 yo female, symptoms of depression, SI, insomnia, poor appetite, agitation, paranoia, delusions. Plan: Olanzapine 2. 5mg bid Continue Seroquel Pt has not been taking Wellbutrin, asks to keep it Lorazepam prn Collateral contact Observe, monitor 02/01/22: No changes today. 02/03/2022: No changes to current plan 02/04/22: Discontinue Wellbutrin Mirtazapine 15 mg HS I spent minutes with the patient and/or on the patient floor today, greater than?50% of which was spent counseling/coordinating care. Patient educated on: therapeutic strategies Informed Consent: further education needed Reason for contiued inpatient stay Substantial Risk for: rapid decompensation
[2022-02-04 17:40] VITALS: BP 107/67; PULSE 71; TEMP 36.4
[2022-02-04] MEDS: Mirtazapine 15 MG TABLET PO (20:15)
[2022-02-04] MEDS: QUEtiapine Fumarate 25 MG TABLET PO (20:15)
[2022-02-04] MEDS: QUEtiapine Fumarate 50 MG TABLET PO (20:15)
[2022-02-04] MEDS: LORazepam 0.5 MG TABLET PO (23:08)
[2022-02-05] MEDS: Levothyroxine Sodium 100 MCG TABLET PO (08:10)
[2022-02-05] MEDS: Gabapentin 100 MG CAPSULE PO ×3 (08:10→20:10)
[2022-02-05] MEDS: OLANZapine 5 MG TABLET PO ×2 (08:10→20:11)
[2022-02-05 09:20] VITALS: BP 116/71; PULSE 77; RESP 16; TEMP 36.6; O2SAT 97
--- NOTE | 2022-02-05 12:38 | P.PNPSI_ITS ---
Subjective Subjective Date of Service: 02/05/22 Reason For Visit: bipolar disorder, depressed Subjective Notes: Conditional Voluntary Healthcare Proxy: No Guardianship: No Medical Problems Affecting Mental Status: No Interim History: Pt is prepared for discharge. She expresses concern about her ability to have heat for the winter. Her daughter has submitted her application for fuel assistance. Discussed with pt that if we may provide further assistance to be in contact. Pt reports regime to be tolerated and helpful. She will follow up with OP team and is looking forward to seeing her son. Medication Compliance: Yes Side effects from medications: No Attending Groups: Yes Review of Systems Acute medical concerns: No Medical Review of Systems: unchanged Mental Status Exam Mental Status Exam Patient Appearance: Appropriate Patient Orientation: Person, Place, Time and Situation Level of Consciousness: Alert Patient Behavior: Talkative and Good Eye Contact Mood Description: Apprehensive Affect Description: Apprehensive Patient Cognition Impaired: No Ability to Follow Directions: Good Speech Pattern: Spontaneous Speech Memory Description: Intact Hallucinations: None Delusions: Not Present Thought Process: Rumination Thought Content: positive for Perseveration and positive for Suicidal Ideation (denies) Depressive Symptoms: Low Self Esteem Judgement: Good Diagnostics Vital Signs (24Hr): Vital Signs - 24 hr 02/04/22 17:40 02/05/22 09:20 Temperature 97.5 F 97.9 F Pulse Rate 71 77 Respiratory Rate 16 Blood Pressure 107/67 116/71 Pulse Oximetry 97 Oxygen Delivery Method Room Air BMI result Body Mass Index 24.4 Labs Results: 01/29/22 16:45 01/29/22 16:45 Medications Medications Current Medications Acetaminophen (Acetaminophen 325 Mg Tablet) 650 mg PO Q6H PRN PRN Reason: Headache/Pain Mild Scale (1-3) Al Hydroxide/Mg Hydroxide (Magnesium Hydrox/Alum Hydrox 30 Ml Oral.Susp) 30 ml PO Q6H PRN PRN Reason: Heartburn/Nausea Gabapentin (Gabapentin 100 Mg Capsule) 100 mg PO TID KALEE Last Admin: 02/05/22 08:10 Dose: 100 mg Hydroxyzine HCl (Hydroxyzine Hcl 25 Mg Tablet) 25 mg PO Q6H PRN PRN Reason: Anxiety Last Admin: 01/31/22 13:21 Dose: 25 mg Levothyroxine Sodium (Levothyroxine Sodium 100 Mcg Tablet) 100 mcg PO DAILY KALEE Last Admin: 02/05/22 08:10 Dose: 100 mcg Lorazepam (Lorazepam 0.5 Mg Tablet) 0.5 mg PO Q8H PRN PRN Reason: Anxiety Last Admin: 02/04/22 23:08 Dose: 0.5 mg Magnesium Hydroxide (Milk Of Magnesia 30 Ml Oral.Susp) 30 ml PO DAILY PRN PRN Reason: Constipation Mirtazapine (Mirtazapine 15 Mg Tablet) 15 mg PO BEDTIME KALEE Last Admin: 02/04/22 20:15 Dose: 15 mg Olanzapine (Olanzapine 5 Mg Tablet) 5 mg PO BID [facility] Last Admin: 02/05/22 08:10 Dose: 5 mg Quetiapine Fumarate (Quetiapine Fumarate 25 Mg Tablet) 25 mg PO BEDTIME KALEE Last Admin: 02/04/22 20:15 Dose: 25 mg Quetiapine Fumarate (Quetiapine Fumarate 50 Mg Tablet) 50 mg PO BEDTIME KALEE Last Admin: 02/04/22 20:15 Dose: 50 mg Trazodone HCl (Trazodone Hcl 50 Mg Tablet) 50 mg PO BEDTIME PRN PRN Reason: Insomnia Last Admin: 02/03/22 22:06 Dose: 50 mg Allergies Allergies Allergy/AdvReac Type Severity Reaction Status Date / Time No Known Allergies Allergy Verified 01/29/22 16:07 Assessment & Plan Assessment & Plan (1) Anxiety: Status: Acute Code(s): F41.9 - Anxiety disorder, unspecified (2) Mood disorder: Status: Acute Code(s): F39 - Unspecified mood [affective] disorder Plan 56 yo female, symptoms of depression, SI, insomnia, poor appetite, agitation, paranoia, delusions. Plan: Olanzapine 2. 5mg bid Continue Seroquel Pt has not been taking Wellbutrin, asks to keep it Lorazepam prn Collateral contact Observe, monitor 02/01/22: No changes today. 02/03/2022: No changes to current plan 02/04/22: Discontinue Wellbutrin Mirtazapine 15 mg HS 02/05/22: Discharge 02/06/22. I spent minutes with the patient and/or on the patient floor today, gre ater than?50% of which was spent counseling/coordinating care. Patient educated on: medication risk/benefits and therapeutic strategies Informed Consent: understands and further education needed Reason for contiued inpatient stay Substantial Risk for: stable for discharge
[2022-02-05 16:15] VITALS: BP 105/66; PULSE 85; TEMP 36.6
[2022-02-05] MEDS: QUEtiapine Fumarate 25 MG TABLET PO (20:10)
[2022-02-05] MEDS: QUEtiapine Fumarate 50 MG TABLET PO (20:10)
[2022-02-05] MEDS: Mirtazapine 15 MG TABLET PO (20:12)
[2022-02-05] MEDS: traZODone HCL 50 MG TABLET PO (22:11)
[2022-02-06 07:50] VITALS: BP 108/68; PULSE 92; TEMP 36.1; O2SAT 98
[2022-02-06] MEDS: Levothyroxine Sodium 100 MCG TABLET PO (08:18)
[2022-02-06] MEDS: Gabapentin 100 MG CAPSULE PO (08:18)
[2022-02-06] MEDS: OLANZapine 5 MG TABLET PO (08:18)
--- NOTE | 2022-03-12 08:23 | PM.PSYDC ---
DS: Providers Provider Date of Service: 02/06/22 Date of admission: 01/29/22 22:40 Date of discharge: 02/06/22 Primary care physician: Unknown Physician Admitting clinician: Mary Coley Attending physician on admission: Jacobo Arauz Attending physician on discharge: Jacobo Arauz Discharging clinician: Mary Coley DS: Diagnosis Discharge Diagnosis (1) Anxiety: Status: Acute (2) Mood disorder: Status: Acute DS: Medications Discharge Medications Home Medications: Home Medications Medication Instructions Recorded Confirmed levothyroxine 100 mcg tablet 1 tab PO DAILY 01/29/22 01/29/22 Previous Rx's Medication Instructions Recorded gabapentin 100 mg capsule 100 mg PO TID #45 caps 02/05/22 mirtazapine 15 mg tablet 15 mg PO BEDTIME #15 tabs 02/05/22 olanzapine 5 mg tablet 5 mg PO BID #30 tabs 02/05/22 quetiapine 50 mg tablet 1 tab PO BEDTIME #15 tabs 02/05/22 Mental Status Exam Mental Status Exam Patient Appearance: Appropriate Patient Orientation: Person, Place, Time and Situation Level of Consciousness: Alert Patient Behavior: Talkative and Good Eye Contact Mood Description: Apprehensive Affect Description: Apprehensive Patient Cognition Impaired: No Ability to Follow Directions: Good Speech Pattern: Spontaneous Speech Memory Description: Intact Hallucinations: None Delusions: Not Present Thought Process: Rumination Thought Content: positive for Perseveration and positive for Suicidal Ideation (denies) Depressive Symptoms: Low Self Esteem Judgement: Good DS: Summary Hospital Course Hospital Course: Admission to adult psychiatry for exacerbation of bipolar disorder and psychosocial stressors. Gabapentin, Mirtazapine and Olanzapine were initiated. Seroquel was titratated. Wellbutrin was discontinued. Pt was given resources to manage current psychosocial concerns. Her son, who lives with her, was checked in with during her admission and found to be in good health and managing without issues which assisted pt in focusing on her treatment. Time spent discussing smoking cessation with patient: 3 to 10 minutes Status at Discharge Functional status at discharge: independent ambulation Overall status at discharge: patient is back to baseline Time Spent with Patient Time attestation: Total time managing care of this patient today 35____ minutes. Time spent: Greater than 30 minutes Discharge Plan Discharge Anticipated Discharge Date/Time: 02/06/22 11:32 Patient Disposition: Home, Self-Care Discharge Diagnosis: Mood Disorder Referrals: Mikayla [Other] - 02/28/22 12:30 pm (In person appointment. Therapist will contact patient prior to Dec appt for a check in. ) Mikayla-psych provider [Other] - 02/11/22 12:00 pm (In person ) Discharge Medications: New olanzapine 5 mg Tablet 5 mg PO BID Qty: 30 1RF mirtazapine 15 mg Tablet 15 mg PO BEDTIME Qty: 15 1RF gabapentin 100 mg Capsule 100 mg PO TID Qty: 45 1RF Continued levothyroxine 100 mcg tablet 1 tab PO DAILY quetiapine 50 mg tablet 1 tab PO BEDTIME Qty: 15 1RF Discontinued quetiapine 25 mg tablet 1 tab PO BEDTIME bupropion HCl 150 mg tablet extended release 24 hr 1 tab PO QAM Discharge Orders: Discharge Order (Routine); Ordered 02/06/22 Ordered By: Mary Coley Diet: Advance to usual diet Activity on Discharge: As tolerated Stand Alone Forms: Patient Portal Discharge page, Community Support Print Language: Citizen Of [place] Care Plan Goals: Maintain mood and safe behaviors Take medications as directed Practice coping skills Continue with out patient providers and reach out as needed Health Concerns: Stable mood and behaviors Plan of Treatment: Follow up with out patient providers Take medications as directed Assessment: Pt interviewed prior to discharge and found to be fully oriented and without any SI or HI. Pt has insight and demonstrates good judgment in terms of wanting to pursue treatment. Pt is not in imminent risk of harm to self or others and has a safety plan that includes presenting to the closest ER or calling 911 if feeling unsafe. Pt has been observed by nursing and unit staff throughout admission. She has not engaged in any behaviors that suggest dangerousness to self or other and has demonstrated appropriate behaviors and impulse control. Discharge Date/Time: 02/06/22 12:50
== END 2022-02-06 12:50 | disposition home or self-care (01) | DRG 756 ==
LOC: HO.ED 22:47 → HO.PM5 22:48
PROVIDERS: Physician Assistant Medical; Admitting Provider Clinical Nurse Specialist Psychiatric/Mental Health, Adult; Emergency Provider Emergency Medicine; Visit Provider Clinical Nurse Specialist Psychiatric/Mental Health, Adult
DX: F41.9 Anxiety disorder, unspecified (principal); R45.851 Suicidal ideations; Z91.14 Patient's other noncompliance with medication regimen; F39 Unspecified mood [affective] disorder; Z20.822 Contact with and (suspected) exposure to COVID-19; Z79.890 Hormone replacement therapy; Z79.899 Other long term (current) drug therapy
CPT/HCPCS: 36415; 80053; 80061; 80143; 80179; 80307; 81025; 82077; 82607; 82746; 83036; 83735; 84439; 84443; 85025; 87635; 93005; 99284